=== PATIENT | male | born 1955 | race Caucasian/White ===

== ENCOUNTER 2017-10-14 09:58 | Outpatient (CLI) | payer BC ==
[2017-10-14 11:38] LABS: CHOLESTEROL 149 mg/dL (<200); HDL CHOLESTEROL 39 mg/dL (40-60); LDL 95 mg/dL (0-99); TRIGLYCERIDES 86 mg/dL (30-150)
== END 2017-10-14 23:59 | disposition home or self-care (01) ==
LOC: LAB 09:58
PROVIDERS: ATTEND Internal Medicine Cardiovascular Disease
DX: E78.5 Hyperlipidemia, unspecified (principal)
CPT/HCPCS: 36415; 80061-TC